=== PATIENT | male | born 1930 | race Caucasian/White ===

== ENCOUNTER 2018-06-01 11:09 | Day surgery (SDC) | payer MEDICARE ==
[2018-06-01] MEDS ORDERED: Erythromycin Base 0.5% Ophth Oint 1 GM Tube EYEBOTH SCH (13:15)
[2018-06-01] MEDS ORDERED: Tetracaine HCl/PF 0.5% 4 ML Bottle EYELF SCH (13:15)
[2018-06-01] MEDS ORDERED: Sodium Chloride 0.9% 10 ML Syringe FLUSH PRN (13:36)
[2018-06-01] MEDS ORDERED: Lidocaine 1%/Sod Bicarbonate in NS 8.4% 1 ML Syringe IDERM PRN (13:36)
[2018-06-01] MEDS ORDERED: Albuterol 0.083% 2.5 MG/3 ML Neb Soln NEB ONE (13:36)
--- NOTE | 2018-06-01 13:43 | PCM.PREANE ---
Preanesthetic Assessment - Anesthesia/Transfusion/Family Hx Anesthesia History: Prior Anesthesia Without Reaction Family History of Anesthesia Reaction: No Transfusion History: Prior Transfusion Without Reaction Type of Transfusion Reactions: Reports: Unknown - Review of Systems General: No Symptoms Pulmonary: Other (Asthma\COPD, daily inhaler use. Denies SOB. CORNELIUS with CPAP use. ) Cardiovascular: No Symptoms, Other (Pacemaker, ventricular paced rhythm. States he had it checked out last month and everything is working good. History of atrial fibrillation.) Gastrointestinal: No Symptoms Neurological: Other (Peripheral Neuropathy. ) Other: Reports: Easy Bruising (On Eliquis, stopped on 05/27/2018) - Physical Assessment NPO Status Date: 06/01/18 NPO Status Time: 19:00 Pulse: 82 O2 Sat by Pulse Oximetry: 96 Respiratory Rate: 14 Blood Pressure: 158/79 Weight: 106 kg ASA Class: 3 Mental Status: Alert & Oriented x3 Airway Class: Mallampati = 2 Dentition: Reports: Partial Thyro-Mental Finger Breadths: 3 Mouth Opening Finger Breadths: 3 ROM/Head Extension: Full Lungs: Clear to Auscultation, Normal Respiratory Effort, Decreased Breath Sounds Cardiovascular: Regular Rate, Regular Rhythm, Other (Pacemaker. ) - Allergies Allergies/Adverse Reactions: Allergies Allergy/AdvReac Type Severity Reaction Status Date / Time No Known Allergies Allergy Verified 05/31/18 13:44 - Acknowledgements Anesthesia Type Planned: MAC Pt an Appropriate Candidate for the Planned Anesthesia: Yes Alternatives and Risks of Anesthesia Discussed w Pt/Guardian: Yes Pt/Guardian Understands and Agrees with Anesthesia Plan: Yes PreAnesthesia Questionnaire HEENT History: Reports: Hard of Hearing, Impaired Vision Other HEENT History: states he only wears glasses for reading. 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 - Infectious Disease History Infectious Disease History: Reports: Chicken Pox - Past Surgical History HEENT Surgical History: Reports: Cataract Surgery GI Surgical History: Reports: Appendectomy, Cholecystectomy Endocrine Surgical History: Reports: None Musculoskeletal Surgical History: Reports: Arthroscopic Procedure, Knee Replacement Dermatological Surgical History: Reports: Other (See Below) - HOME MEDS Home Medications: Home Meds atorvaSTATin [Lipitor] 20 mg PO DAILY 03/11/15 [History] Hydrocodone/Acetaminophen [[place] 5-325] 1 - 2 tab PO TID 08/12/15 [History] Furosemide [Lasix] 40 mg PO DAILY 01/27/16 [History] Pregabalin [Lyrica] 200 mg PO BID 01/27/16 [History] Tamsulosin [Flomax] 0.4 mg PO DAILY 01/27/16 [History] Apixaban [Eliquis] 2.5 mg PO DAILY 10/21/17 [History] - CURRENT (IN HOUSE) MEDS Current Meds: Current Medications Albuterol (Proventil Neb Soln) 2.5 mg NEB ONETIME ONE Stop: 06/01/18 13:37 Erythromycin (Erythromycin 0.5% Ophth Oint) 1 gm EYEBOTH ASDIRECTED ADRIEL Stop: 06/01/18 18:00 Lactated Ringer's (Ringers, Lactated) 1,000 mls @ 125 mls/hr IV ASDIRECTED [facility] Lidocaine/Sodium Bicarbonate (Buffered Lidocaine 1% In Ns 8.4%) 0.25 ml IDERM ONETIME PRN PRN Reason: Prior to IV Start Sodium Chloride (Saline Flush) 10 ml FLUSH ASDIRECTED PRN PRN Reason: Keep Vein Open Tetracaine HCl (Tetracaine 0.5% Steri-Unit Sammie) 0 ml EYELF ASDIRECTED ADRIEL Stop: 06/01/18 18:00
[2018-06-01] MEDS ORDERED: Lactated Ringers 1,000 ML IV SCH (13:45)
[2018-06-01] MEDS ORDERED: Lidocaine 1% with EPINEPHrine 1:100,000 20 ML MDV ONE (13:46)
[2018-06-01] MEDS ORDERED: Albuterol 0.083% 2.5 MG/3 ML Neb Soln ONE (13:52)
[2018-06-01] MEDS ORDERED: Lidocaine 1% 2 ML ONE ×2 (14:00)
[2018-06-01] MEDS ORDERED: Propofol 200 MG/20 ML SDV ONE (14:00)
[2018-06-01] MEDS ORDERED: Phenylephrine/Normal Saline 100 MCG/ML 10 ML Syringe ONE (14:47)
--- NOTE | 2018-06-01 15:11 | PCM48HPAN ---
Post Anesthesia Note - EVALUATION WITHIN 48HRS OF ANESTHETIC Vital Signs in Normal Range: Yes Patient Participated in Evaluation: Yes Respiratory Function Stable: Yes Airway Patent: Yes Cardiovascular Function Stable: Yes Hydration Status Stable: Yes Pain Control Satisfactory: Yes Nausea and Vomiting Control Satisfactory: Yes Mental Status Recovered: Yes Pulse Rate: 82 SaO2: 96 Resp Rate: 14 Blood Pressure: 106/43
[2018-06-01 15:48] VITALS: BP 105/55
== END 2018-06-01 15:40 | disposition home or self-care (01) ==
LOC: JD.SDS 11:09
PROVIDERS: ATTEND Ophthalmology
DX: C44.1291 Squamous cell carcinoma of skin of left upper eyelid, including canthus (principal); H35.3132 Nonexudative age-related macular degeneration, bilateral, intermediate dry stage; I10 Essential (primary) hypertension; J44.9 Chronic obstructive pulmonary disease, unspecified; I48.2 Chronic atrial fibrillation; E78.00 Pure hypercholesterolemia, unspecified; Z87.891 Personal history of nicotine dependence; Z79.01 Long term (current) use of anticoagulants; Z79.82 Long term (current) use of aspirin; Z79.899 Other long term (current) drug therapy; Z68.38 Body mass index [BMI] 38.0-38.9, adult; Z88.5 Allergy status to narcotic agent
CPT/HCPCS: 14060; 94640; A9270; J2001; J2370; J2704; J7120

== ENCOUNTER 2019-08-30 15:06 | Emergency (ER) | payer MEDICARE ==
--- NOTE | 2019-08-30 15:26 | EDM.PDOC ---
ED HPI GENERAL MEDICAL PROBLEM - General Chief Complaint: Lower Extremity Injury/Pain Stated Complaint: CUT TOE ON RIGHT FOOT Time Seen by Provider: 08/30/19 15:21 Source of Information: Reports: Patient, Family (son) History Limitations: Reports: No Limitations - History of Present Illness INITIAL COMMENTS - FREE TEXT/NARRATIVE: 89-year-old male attends the ED due to a pinched laceration to the distal end of his right fourth toe. He was trying to cut his own toenails and slipped cutting the tissue underneath the nail with very active bleeding. Of note he is on blood thinners--Eliquis 2.5mg od. He believes his tetanus toxoid is up-to-date. Cannot get the wound to stop bleeding and therefore had to come to the ED. Onset: Today Onset Date: 08/30/19 Onset Time: 14:45 Duration: Minutes: Location: Reports: Lower Extremity, Right (Injury to the distal aspect of his right fourth toe) Quality: Reports: Stabbing Severity: Mild Improves with: Reports: None Worsens with: Reports: None Context: Reports: Other. Denies: Activity, Exercise, Lifting, Sick Contact, Trauma Associated Symptoms: Reports: No Other Symptoms Treatments [employer]: Reports: Other (see below) (None.) Right Feet Pain Score (Numeric/FACES): 0 - Related Data Allergies Allergy/AdvReac Type Severity Reaction Status Date / Time No Known Allergies Allergy Verified 08/30/19 15:16 Home Meds: Home Meds atorvaSTATin [Lipitor] 20 mg PO DAILY 03/11/15 [History] Hydrocodone/Acetaminophen [[place] 5-325] 1 - 2 tab PO TID 08/12/15 [History] Furosemide [Lasix] 40 mg PO DAILY 01/27/16 [History] Pregabalin [Lyrica] 200 mg PO BID 01/27/16 [History] Tamsulosin [Flomax] 0.4 mg PO DAILY 01/27/16 [History] Apixaban [Eliquis] 2.5 mg PO DAILY 10/21/17 [History] Past Medical History HEENT History: Reports: Hard of Hearing, Impaired Vision Other HEENT History: states he only wears glasses for reading. 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 - Living Situation & Occupation Living situation: Reports: Occupation: Retired Review of Systems - Review of Systems Review Of Systems: See Below Constitutional: Denies: Chills, Diaphoresis, Fever, Weakness, Other Eyes: Reports: Decreased Acuity Ears: Reports: Other Nose: Reports: No Symptoms (Mildly hard of hearing.) Mouth/Throat: Reports: No Symptoms Respiratory: Reports: Shortness of Breath Cardiovascular: Reports: Other (Hypertension). Denies: Chest Pain, Edema, Irregular Heart Rate GI/Abdominal: Reports: No Symptoms Genitourinary: Reports: Other (Urinary frequency nocturia x3 known BPH) Musculoskeletal: Reports: Back Pain, Joint Pain (Knees hips shoulders and neck.) Skin: Reports: Bruising Neurological: Reports: No Symptoms (Bruises easily as he is on Eliquis.) Psychiatric: Reports: No Symptoms ED EXAM, GENERAL - Physical Exam Exam: See Below Exam Limited By: No Limitations General Appearance: Alert, WD/WN, No Apparent Distress Extremities: Other (Emanation limited to the right fourth toe where there is active bleeding it appears just inferior to the toenail which is infected with fungus and si thickened . Bleeding coming from a area just inferior to the toenail questionable whether is a flap laceration and large enough to suture. Wound will be cleansed by nursing staff and will make a decision in this regard.) Neurological: Alert, Oriented, CN II-XII Intact, Normal Cognition, Other (Walks with the aid of a cane.). No: Normal Gait Psychiatric: Normal Affect, Normal Mood Skin Exam: Warm, Dry, Normal Color, No Rash Course - Vital Signs Last Recorded V/S: Last Vital Signs Temp 36.7 C 08/30/19 15:10 Pulse 72 08/30/19 15:10 Resp 16 08/30/19 15:10 BP 136/71 08/30/19 15:10 Pulse Ox 92 L 08/30/19 15:10 - Radiology Interpretation Free Text/Narrative:: 89-year-old male presents to the ED with a superficial laceration to the tip of his right fourth toe. This occurred when he accidentally missed his toenail while trying to trim his nails and caught the skin. He is on Eliquis 2.5 mg once daily which is contributing to the active bleeding. Will be cleansed before we can make a decision whether or not a suture will be required. - Re-Assessments/Exams Free Text/Narrative Re-Assessment/Exam: 08/30/19 15:41 Examination of the wound shows it to be like a pinch type injury with mostly hematoma under the nail bed and very little laceration. Decision made to wrap the toe with a compression dressing with Xeroform for the next 2 days. Then daily cleanse the wound with soap and water and apply topical antibiotic such as bacitracin or Polysporin and bandage to keep it from getting infected. He is already on antibiotics orally on a daily basis which should prevent infection at any rate. Departure - Departure Time of Disposition: 15:42 Disposition: Home, Self-Care 01 Condition: Fair Clinical Impression: Toe laceration Qualifiers: Encounter type: initial encounter Toe: unspecified toe Damage to nail status: without damage Foreign body presence: without foreign body Laterality: right Qualified Code(s): S91.119A - Laceration without foreign body of unspecified toe without damage to nail, initial encounter - Discharge Information *PRESCRIPTION DRUG MONITORING PROGRAM REVIEWED*: Not Applicable *COPY OF PRESCRIPTION DRUG MONITORING REPORT IN PATIENT [place]: Not Applicable Instructions: Laceration Care, Adult Referrals: Manjeet Shetty MD [Primary Care Provider] - Forms: ED Department Discharge Additional Instructions: Evaluation in the ED with a laceration to the tip of your right fourth toe which occurred accidentally while trying to trim your toenails. The wound was bleeding quite aggressively because of being on on Eliquis 2.5 mg once daily. With direct pressure able to get the balloon bleeding stopped. There is a minimal laceration that would not benefit from suture. There is more of a hematoma formation on the tip of the toe from a crush type or pinch type injury. You are already on oral antibiotics. I am going to therefore place a compression dressing on the toe for the next 48 hours with Xeroform dressing. After that you are to cleanse the wound daily with soap and water. Showering is okay. Then apply topical antibiotic such as bacitracin or Polysporin to the wound and cover with a bandage to keep clean for about 4-5 more days until the wound heals. Follow up with personal care physician if any further problems occur. Sepsis Event Note (ED) - Focused Exam Vital Signs: Vital Signs Temp Pulse Resp BP Pulse Ox 08/30/19 15:10 36.7 C 72 16 136/71 92 L
[2019-08-30 16:07] VITALS: BP 143/60; PULSE 70
== END 2019-08-30 16:00 | disposition home or self-care (01) ==
LOC: JD.ED 15:06
DX: S91.114A Laceration without foreign body of right lesser toe(s) without damage to nail, initial encounter (principal); J44.9 Chronic obstructive pulmonary disease, unspecified; I48.91 Unspecified atrial fibrillation; I10 Essential (primary) hypertension; E78.00 Pure hypercholesterolemia, unspecified; G62.9 Polyneuropathy, unspecified; Z79.899 Other long term (current) drug therapy; W27.8XXA Contact with other nonpowered hand tool, initial encounter
CPT/HCPCS: 99282